=== PATIENT | male | born 1960 | race Caucasian/White ===

== ENCOUNTER 2016-11-01 16:15 | Observation (INO) | payer BC ==
[2016-11-01] VITALS (7 sets, daily range): BP systolic 133–156; BP diastolic 79–91
[~2016-11-01] VITALS: Ht 170.2 cm; Wt 94.2 kg
[~2016-11-01 16:15] MED LIST: ATOR10TA66 PO; MTF500T PO; OLME1TAB19 PO; OMEG1CAP PO
[2016-11-01] MEDS ORDERED: NEBI5TAB8 PO (16:55)
[2016-11-01] MEDS ORDERED: AMLO10TA2 PO (16:55)
[2016-11-01] MEDS ORDERED: TADA5TAB2 PO (16:55)
[2016-11-01] MEDS ORDERED: EMPA1TAB PO (16:55)
[2016-11-01] MEDS ORDERED: ATOR20TA66 PO (16:55)
[2016-11-01 17:10] LABS: BASOPHILS % (AUTO) 0 % (0-10); EOSINOPHILS # (AUTO) 0.1 10^3/uL (0.0-0.3); EOSINOPHILS % (AUTO) 1 % (0-10); LYMPHOCYTES # (AUTO) 2.6 X 10^3 (1.0-4.0); LYMPHOCYTES % (AUTO) 26 % (12-44); MEAN CORPUSCULAR HEMOGLOBIN 29 PG (25-34); MEAN CORPUSCULAR HGB CONC 34 G/DL (32-36); MEAN CORPUSCULAR VOLUME 87 FL (80-99); MONOCYTES # (AUTO) 0.9 X 10^3 (0.0-1.0); MONOCYTES % (AUTO) 9 % (0-12); NEUTROPHILS # (AUTO) 6.4 X 10^3 (1.8-7.8); NEUTROPHILS % (AUTO) 64 % (42-75); PLATELET COUNT 217 10^3/uL (130-400); RED BLOOD COUNT 5.32 10^6/uL (4.35-5.85); RED CELL DISTRIBUTION WIDTH 13.6 % (10.0-14.5)
[2016-11-01] MEDS ORDERED: ASPIRIN 81 MG CHEW (CHILDREN'S ASA) PO ONE (17:15)
--- NOTE | 2016-11-01 17:24 | Diagnostic Imaging Report ---
INDICATION: Chest pain and lightheadedness. EXAM: Frontal chest obtained at 5:14 hours p.m. COMPARISON: 03/03/2009 FINDINGS: The heart is borderline in size. Mediastinal silhouette is unremarkable. The lungs are clear. There is no pneumothorax or pleural fluid. IMPRESSION: Borderline heart size with no acute change compared to the prior study of 03/03/09. No new infiltrate or pleural fluid. Dictated by: Dictated on workstation # [id number]
[2016-11-01 17:25] LABS: ALANINE AMINOTRANSFERASE 23 U/L (0-55); ALBUMIN 4.3 GM/DL (3.2-4.5); ANION GAP 14 MMOL/L (5-14); ASPARTATE AMINO TRANSFERASE 17 U/L (5-34); BILIRUBIN,TOTAL 0.6 MG/DL (0.1-1.0); BLOOD UREA NITROGEN 15 MG/DL (7-18); BUN/CREATININE RATIO 12; CALCIUM 9.8 MG/DL (8.5-10.1); CARBON DIOXIDE 21 MMOL/L (21-32); CHLORIDE 106 MMOL/L (98-107); CREATININE SERUM 1.28 MG/DL (0.60-1.30); GFR ESTIMATED 58; GLUCOSE 154 MG/DL (70-105); MAGNESIUM 2.2 MG/DL (1.8-2.4); POTASSIUM 3.5 MMOL/L (3.6-5.0); SODIUM 141 MMOL/L (135-145); TOTAL PROTEIN 7.5 GM/DL (6.4-8.2)
[2016-11-01 17:31] LABS: MYOGLOBIN SERUM 30.9 NG/ML (10.0-92.0)
--- NOTE | 2016-11-01 17:41 | ED Chest Pain ---
General Chief Complaint: Chest Pain Stated Complaint: CP/DIZZINESS Nursing Triage Note: pt reports cp for aprox 2 hrs. pt states he also feels lightheaded. pt reports pain is worse with increased pain on inspiration. pt states pain is medial and by his sternum. Nursing Sepsis Screen: No Definite Risk Source: patient Exam Limitations: no limitations History of Present Illness Time seen by provider: 17:03 Initial Comments Here with and reports that he had chest pain onset about 2 hours prior to arrival. States that it was central with some radiation to the lateral aspect of the upper chest. He was trying to rest and was not getting better. He decided to walk into the kitchen when he became quite dizzy and weak and felt hot. States that symptoms worsened and so he decided to come to the hospital. On arrival he is feeling a little better with only minimal central chest pain or pressure. Patient is diabetic and has cholesterol and hypertension problems. He does not smoke but does have strong family history. Symptoms essentially resolved now. Patient does report taking Cialis last night. No report of Cialis since. Timing/Duration: 1-3 hours, changing over time Severity/Quality: moderate, pressure Location: central Radiation: shoulders Activities at Onset: none Prior CP/Workup: no prior chest pain Modifying Factors: worse with exercise, improves with rest ASA po CREDIT CHARGE AUTHORIZER: No NTG SL CREDIT CHARGE AUTHORIZER: No Associated Symptoms: No abdominal pain, No back pain, No diaphoresis, dizziness , No nausea/vomiting, shortness of breath, weakness Allergies and Home Medications Allergies Coded Allergies: No Known Drug Allergies (Unverified , 11/13/12) Home Medications Amlodipine Besylate 10 Mg Tablet, #90 (Reported) Atorvastatin Calcium 10 Mg Tablet, 10 MG PO DAILY, (Reported) Atorvastatin Calcium 20 Mg Tablet, #90 (Reported) Empagliflozin/Linagliptin 1 Each Tablet, #30 (Reported) Metformin Hcl 500 Mg Tablet, 1 EACH PO BID WITH MEALS, (Reported) Nebivolol HCl 5 Mg Tablet, 5 MG PO DAILY, #30 (Reported) Olmesartan 1 Tab Tablet, 1 EACH PO DAILY, (Reported) [place]-3 Acid Ethyl Esters 1 Gm Capsule, 1 GM PO DAILY, (Reported) Tadalafil 5 Mg Tablet, #30 (Reported) Review of Systems Constitutional: see HPI, No chills, No fever EENTM: No Symptoms Reported Respiratory: See HPI Cardiovascular: See HPI, Chest Pain Gastrointestinal: No Symptoms Reported Genitourinary: No Symptoms Reported Musculoskeletal: no symptoms reported Skin: no symptoms reported All Other Systems Reviewed Negative Unless Noted: Yes Past Iexresx-Dktots-Cgviqt Hx Patient Social History Alcohol Use: Rarely Uses Recreational Drug Use: No Smoking Status: Never a Smoker Recent Foreign Travel: No Contact w/Someone Who Travel: No Recent Infectious Disease Expo: No Respiratory Hx Respiratory Disorders: Yes (SLEEP ANEA) Respiratory Disorders: Sleep Apnea Cardiovascular Hx Cardiac Disorders: No Cardiac Disorders: High Cholesterol, Hypertension Gastrointestinal Hx Gastrointestinal Disorders: No Musculoskeletal Hx Musculoskeletal Disorders: Yes (ARTHRITIS) Endocrine Hx Endocrine Disorders: Yes Endocrine Disorders: Diabetes, Non-Insulin dep Blood Transfusions Adverse Reaction to a Blood Tr: No Reviewed Nursing Assessment Reviewed/Agree w Nursing PMH: Yes Family Medical History Significant Family History: No Pertinent Family Hx Physical Exam Vital Signs Vital Sign - Last 12Hours 11/01/16 16:37 Temp 98.2 Pulse 65 Resp 18 B/P (MAP) 133/79 Pulse Ox 97 O2 Delivery Room Air Capillary Refill : Less Than 3 Seconds General Appearance: No Apparent Distress, WD/WN HEENT: PERRL/EOMI, Pharynx Normal Neck: Non Tender, Supple Respiratory: Lungs Clear, Normal Breath Sounds Cardiovascular: Regular Rate, Rhythm, No Murmur Gastrointestinal: Normal Bowel Sounds, No Pulsatile Mass, Non Tender, Soft Extremity: Normal Inspection, Normal Range of Motion, Non Tender, No Calf Tenderness Neurologic/Psychiatric: Alert, Oriented x3 Skin: Normal Color, Warm/Dry Progress/Results/Core Measures Results/Orders Lab Results Laboratory Tests Test 11/01/16 16:30 Range/Units White Blood Count 10.0 4.3-11.0 10^3/uL Red Blood Count 5.32 4.35-5.85 10^6/uL Hemoglobin 15.5 13.3-17.7 G/DL Hematocrit 46 40-54 % Mean Corpuscular Volume 87 80-99 FL Mean Corpuscular Hemoglobin 29 25-34 PG Mean Corpuscular Hemoglobin Concent 34 32-36 G/DL Red Cell Distribution Width 13.6 10.0-14.5 % Platelet Count 217 130-400 10^3/uL Mean Platelet Volume 10.0 7.4-10.4 FL Neutrophils (%) (Auto) 64 42-75 % Lymphocytes (%) (Auto) 26 12-44 % Monocytes (%) (Auto) 9 0-12 % Eosinophils (%) (Auto) 1 0-10 % Basophils (%) (Auto) 0 0-10 % Neutrophils # (Auto) 6.4 1.8-7.8 X 10^3 Lymphocytes # (Auto) 2.6 1.0-4.0 X 10^3 Monocytes # (Auto) 0.9 0.0-1.0 X 10^3 Eosinophils # (Auto) 0.1 0.0-0.3 10^3/uL Basophils # (Auto) 0.0 0.0-0.1 10^3/uL Prothrombin Time 13.0 12.2-14.7 SEC INR Comment 1.0 0.8-1.4 Activated Partial Thromboplast Time 22 L 24-35 SEC D-Dimer 0.30 0.00-0.49 UG/ML Sodium Level 141 135-145 MMOL/L Potassium Level 3.5 L 3.6-5.0 MMOL/L Chloride Level 106 98-107 MMOL/L Carbon Dioxide Level 21 21-32 MMOL/L Anion Gap 14 5-14 MMOL/L Blood Urea Nitrogen 15 7-18 MG/DL Creatinine 1.28 0.60-1.30 MG/DL Estimat Glomerular Filtration Rate 58 BUN/Creatinine Ratio 12 Glucose Level 154 H 70-105 MG/DL Calcium Level 9.8 8.5-10.1 MG/DL Magnesium Level 2.2 1.8-2.4 MG/DL Total Bilirubin 0.6 0.1-1.0 MG/DL Aspartate Amino Transf (AST/SGOT) 17 5-34 U/L Alanine Aminotransferase (ALT/SGPT) 23 0-55 U/L Alkaline Phosphatase 60 40-136 U/L Myoglobin 30.9 10.0-92.0 NG/ML Troponin I < 0.30 <0.30 NG/ML Total Protein 7.5 6.4-8.2 GM/DL Albumin 4.3 3.2-4.5 GM/DL Amylase Level 68 25-125 U/L Lipase 36 8-78 U/L My Orders Orders - ROMEO JUAN MD Cbc With Automated Diff (11/01/16 17:01) Magnesium (11/01/16 17:01) Chest 1 View, Ap/Pa Only (11/01/16 17:01) Ekg Tracing (11/01/16 17:01) Cardiac Profile 1 (11/01/16 17:01) Comprehensive Metabolic Panel (11/01/16 17:01) Myoglobin Serum (11/01/16 17:01) Protime With Inr (11/01/16 17:01) Partial Thromboplastin Time (11/01/16 17:01) O2 (11/01/16 17:01) Monitor-Rhythm Ecg Trace Only (11/01/16 17:01) Lipid Panel (11/02/16 06:00) Aspirin Chewable Tablet (Baby Aspirin Ch (11/01/16 17:15) Saline Lock/Iv-Start (11/01/16 17:01) Amylase (11/01/16 17:55) Fibrin Degradation Products (11/01/16 17:55) Lipase (11/01/16 17:55) Medications Given in ED Current Medications Medications Dose Ordered Sig/Eddie Route Start Time Stop Time Status Last Admin Dose Admin Aspirin 324 mg ONCE ONCE PO 11/01/16 17:15 11/01/16 17:16 DC 11/01/16 17:07 324 MG Vital Signs/I&O Vital Sign - Last 12Hours 11/01/16 11/01/16 16:37 16:37 Temp 98.2 Pulse 65 Resp 18 B/P (MAP) 133/79 Pulse Ox 97 O2 Delivery Room Air Blood Pressure Mean: 97 Progress Note : Progress Note Seen and evaluated. IV, labs, EKG and chest x-ray ordered. ASA 324 mg by mouth given. Nitroglycerin held as patient was essentially pain-free and he has recent Cialis use last . Monitor patient. 1840: I did discuss the case with Dr. PELAYO and he accepts patient for admission. Consulted Dr. Butts. He accepts patient as consult. Patient and family agree with plan. Patient remains pain free. ECG Initial ECG Impression Date: Nov 01, 2016 Initial ECG Impression Time: 16:24 Initial ECG Rate: 59 Initial ECG Rhythm: Normal Sinus Initial ECG Comparisson: No Previous ECG Available Comment Sinus rhythm with left atrial abdomen mildly. No evidence of ST elevation TX. T waves are flattened in the inferior leads. No previous available for comparison. Interpreted by me. Departure Communication Time/Spoke to Admitting Phy: 18:40 Time/Spoke to Consulting Physi: 18:45 Impression Impression: Primary Impression: Chest pain Qualified Codes: R07.9 - Chest pain, unspecified Disposition: 09 ADMITTED INPATIENT Condition: Stable Decision to Admit Reason: Admit from ER (General) Decision to Admit/Date: Nov 01, 2016 Time/Decision to Admit Time: 18:40 Departure-Patient Inst. Referrals: CHUCHO RAYA MD (PCP/Family) Primary Care Physician ROMEO JUAN MD Nov 01, 2016 17:41
[2016-11-01 18:12] LABS: AMYLASE 68 U/L (25-125); LIPASE 36 U/L (8-78)
[2016-11-01 23:16] LABS: CREATINE KINASE 83 U/L (30-200)
[2016-11-01 23:22] LABS: MYOGLOBIN SERUM 40.3 NG/ML (10.0-92.0); TROPONIN I < 0.30 NG/ML (<0.30)
[2016-11-01] MEDS ORDERED: NS IV 1000 ML 1,000 ML IV SCH (23:30)
[2016-11-01] MEDS ORDERED: morphine INJ 4 MG/ML 1 ML (VIAL/SYRINGE) IV PRN (23:30)
[2016-11-01] MEDS ORDERED: NITROGLYCERIN SUBLINGUAL 0.4 MG TAB (NITROSTAT) SL PRN (23:30)
[2016-11-02] VITALS (11 sets, daily range): BP systolic 122–161; BP diastolic 80–96
[2016-11-02] MEDS: inSUlin (REGULAR) HUMAN 1 UNIT/0.01 ML (CHARGE PER UNIT) SC SCH ×3 (05:28→17:21)
[2016-11-02] MEDS ORDERED: inSUlin (REGULAR) HUMAN 1 UNIT/0.01 ML (CHARGE PER UNIT) SC SCH (06:00)
[2016-11-02 06:07] LABS: BASOPHILS % (AUTO) 0 % (0-10); EOSINOPHILS # (AUTO) 0.1 10^3/uL (0.0-0.3); EOSINOPHILS % (AUTO) 2 % (0-10); LYMPHOCYTES # (AUTO) 2.1 X 10^3 (1.0-4.0); LYMPHOCYTES % (AUTO) 25 % (12-44); MEAN CORPUSCULAR HEMOGLOBIN 30 PG (25-34); MEAN CORPUSCULAR HGB CONC 34 G/DL (32-36); MEAN CORPUSCULAR VOLUME 88 FL (80-99); MONOCYTES # (AUTO) 0.9 X 10^3 (0.0-1.0); MONOCYTES % (AUTO) 11 % (0-12); NEUTROPHILS # (AUTO) 5.5 X 10^3 (1.8-7.8); NEUTROPHILS % (AUTO) 63 % (42-75); PLATELET COUNT 186 10^3/uL (130-400); RED BLOOD COUNT 5.14 10^6/uL (4.35-5.85); RED CELL DISTRIBUTION WIDTH 13.9 % (10.0-14.5); WHITE BLOOD COUNT 8.7 10^3/uL (4.3-11.0)
[2016-11-02 06:28] LABS: CHOLESTEROL 167 MG/DL (< 200); DIRECT LDL 101 MG/DL (1-129); TRIGLYCERIDES 203 MG/DL (<150); VLDL CHOLESTEROL 41 MG/DL (5-40)
[2016-11-02 06:30] LABS: ALANINE AMINOTRANSFERASE 20 U/L (0-55); ANION GAP 11 MMOL/L (5-14); ASPARTATE AMINO TRANSFERASE 17 U/L (5-34); BILIRUBIN,TOTAL 0.7 MG/DL (0.1-1.0); BLOOD UREA NITROGEN 14 MG/DL (7-18); BUN/CREATININE RATIO 11; CALCIUM 9.4 MG/DL (8.5-10.1); CARBON DIOXIDE 22 MMOL/L (21-32); CHLORIDE 108 MMOL/L (98-107); CREATININE SERUM 1.22 MG/DL (0.60-1.30); GFR ESTIMATED > 60; GLUCOSE 126 MG/DL (70-105); POTASSIUM 3.9 MMOL/L (3.6-5.0); SODIUM 141 MMOL/L (135-145); TOTAL PROTEIN 7.1 GM/DL (6.4-8.2)
[2016-11-02] MEDS ORDERED: ASPIRIN E.C. 325 MG (ECOTRIN) TABLET PO SCH (09:00)
[2016-11-02] MEDS ORDERED: HEParin (CATH LAB) 2,000 ML IV ONE (11:29)
[2016-11-02] MEDS ORDERED: NS IV 1000 ML 0 ML ONE (11:29)
--- NOTE | 2016-11-02 11:41 | Consultation-Cardiology ---
HPI-Cardiology Cardiology Consultation: Date of Consultation 11/02/16 Time Seen by Provider: 10:50 Date of Admission 11-01-16 Attending Physician Damir New MD Admitting Physician Yovani Echeverria MD Consulting Physician Nubia Aleman MD HPI: Chief Complaint: Chest pain Mr. Abdi is a 56 year old male who has been admitted to 413 from the ED. He reports he had been at [facility] on Tuesday and done a considerable amount of walking. He states on Tuesday evening he had quite a bit of indigestion and belching. He states he sat up on the side of the bed, but this passed and he was able to go back to sleep. He reports yesterday he began having midsternal chest pressure, like someone was pushing on his chest. He states he was watching television when it came on. The discomfort continued to worsen. He states he felt very nauseated. He reports he got up and he felt like he may pass out. His spouse at the bedside states he became very pale and sweaty. It lasted for quite a few minutes and resolved. However, he was still having the chest pressure. He then came to the ED. He reports the discomfort has subsided almost entirely. He rates it a 1 out of 10 on the pain scale. He states he does feel much better this morning. No c/o dyspnea or syncope. No c/ o vomiting or diarrhea. No c/o LE edema. Review of Systems-Cardiology Review of Systems Constitutional: As described under HPI, No As described under HPI, No no symptoms reported, No chills, No fever, No lightheadedness Eyes: No As described under HPI, No no symptoms reported, No blindness, No blurred vision, No contact lenses, No drainage, No decreased acuity, No foreign body sensation, No pain, No vision change Ears/Nose/Throat: No As described under HPI, No no symptoms reported, No chronic hearing loss, No ear discharge, No ear pain, No nasal drainage, No ulcerations Respiratory: No no symptoms reported, As described under HPI, No As described under HPI, No cough, No orthopnea, No shortness of breath, No SOB with excertion Cardiovascular: No no symptoms reported, As described under HPI, No As described under HPI, No chest pain, No edema, No irregular heart rate, No lightheadedness, No palpitations Gastrointestinal: No no symptoms reported, No As described under HPI, No abdomen distended, No abdominal pain, No blood streaked bowels, No constipation , No diarrhea, No nausea, No vomiting, No stool coloration changes Genitourinary: No As described under HPI, No burning, No dysuria, No discharge , No frequency, No flank pain, No hematuria, No urgency Skin: No rash, No skin related problems, No ulcerations Psychiatric/Neurological: No anxiety, No depression, No focal weakness, No seizure, No syncope Hematologic: No bleeding abnormalities All Other Systems Reviewed Negative Unless Noted: Yes EGE-Zrniaz-Obgfrk Hx Patient Social History Alcohol Use: Rarely Uses Recreational Drug Use: No Smoking Status: Never a Smoker Recent Foreign Travel: No Recent Infectious Disease Expo: No Past Medical History PMH As described under Assessment. Family Medical History Family Medical History: He reports his father had CAD and was in his late 40's when he had his first heart attack. He reports his mother had CHF. He reports a brother who is 13 year older than him has CAD with stents placed a year ago. Family History: 19 FATHER Cardiovascular disease FH: congestive heart failure FH: coronary artery bypass surgery 19 MOTHER FH: congestive heart failure Diabetes mellitus G8 BROTHER Stent Allergies and Home Medications Allergies Coded Allergies: No Known Drug Allergies (Unverified , 11/13/12) Home Medications Amlodipine Besylate 10 Mg Tablet, 10 MG PO DAILY, (Reported) Atorvastatin Calcium 20 Mg Tablet, 20 MG PO DAILY, (Reported) Empagliflozin/Linagliptin 1 Each Tablet, 1 TAB PO DAILY, (Reported) Nebivolol HCl 5 Mg Tablet, 5 MG PO DAILY, (Reported) Tadalafil 5 Mg Tablet, 5 MG PO DAILY PRN for SEXUAL ACTIVITY, (Reported) Physical Exam-Cardiology Physical Exam Vital Signs/I&O Vital Sign - Last 12Hours 11/02/16 11/02/16 11/02/16 11/02/16 04:00 07:24 08:52 13:00 Temp 98.2 98.0 98.4 Pulse 59 66 63 57 Resp 20 20 20 B/P (MAP) 129/82 136/88 161/85 Pulse Ox 97 98 97 O2 Delivery Room Air Room Air Room Air Intake and Output 11/02/16 00:00 Intake Total 240 ml Balance 240 ml Capillary Refill : Less Than 3 Seconds Constitutional: appears stated age, No apparent distress, well-developed, well- nourished HEENT: PERRL, No discharge, hearing is well preserved, oral hygience is good, No ulceration, No xanthelasmas are seen Neck: No carotid bruit, carotid pulses are 2 + bilaterally Respiratory: No accessory muscle use, No respiratory distress, lungs clear to percussion, lungs clear to auscultation Cardiovascular: regular rate-rhythm, No JVD, S1 and S2 Gastrointestinal: No tender, soft, round, No spleenomegaly Rectal: deferred Extremities: No clubbing, No cyanosis, No significant edema Neurologic/Psychiatric: alert, oriented x 3, power is 5/5 both on sides Skin: No rash, No ulcerations Data Review Labs Laboratory Tests 11/01/16 16:30: White Blood Count 10.0, Red Blood Count 5.32, Hemoglobin 15.5, Hematocrit 46, Mean Corpuscular Volume 87, Mean Corpuscular Hemoglobin 29, Mean Corpuscular Hemoglobin Concent 34, Red Cell Distribution Width 13.6, Platelet Count 217, Mean Platelet Volume 10.0, Neutrophils (%) (Auto) 64, Lymphocytes (%) (Auto) 26 , Monocytes (%) (Auto) 9, Eosinophils (%) (Auto) 1, Basophils (%) (Auto) 0, Neutrophils # (Auto) 6.4, Lymphocytes # (Auto) 2.6, Monocytes # (Auto) 0.9, Eosinophils # (Auto) 0.1, Basophils # (Auto) 0.0, Prothrombin Time 13.0, INR Comment 1.0, Activated Partial Thromboplast Time 22L, D-Dimer 0.30, Sodium Level 141, Potassium Level 3.5L, Chloride Level 106, Carbon Dioxide Level 21, Anion Gap 14, Blood Urea Nitrogen 15, Creatinine 1.28, Estimat Glomerular Filtration Rate 58, BUN/Creatinine Ratio 12, Glucose Level 154H, Calcium Level 9.8, Magnesium Level 2.2, Total Bilirubin 0.6, Aspartate Amino Transf (AST/SGOT ) 17, Alanine Aminotransferase (ALT/SGPT) 23, Alkaline Phosphatase 60, Myoglobin 30.9, Troponin I < 0.30, Total Protein 7.5, Albumin 4.3, Amylase Level 68, Lipase 36 11/01/16 22:50: Myoglobin 40.3, Troponin I < 0.30, Total Creatine Kinase 83 11/02/16 05:14: Glucometer 127H 11/02/16 05:30: Triglycerides Level 203H, Cholesterol Level 167, LDL Cholesterol Direct 101, VLDL Cholesterol 41H, HDL Cholesterol 35L 11/02/16 05:40: White Blood Count 8.7, Red Blood Count 5.14, Hemoglobin 15.3, Hematocrit 45, Mean Corpuscular Volume 88, Mean Corpuscular Hemoglobin 30, Mean Corpuscular Hemoglobin Concent 34, Red Cell Distribution Width 13.9, Platelet Count 186, Mean Platelet Volume 10.0, Neutrophils (%) (Auto) 63, Lymphocytes (%) (Auto) 25 , Monocytes (%) (Auto) 11, Eosinophils (%) (Auto) 2, Basophils (%) (Auto) 0, Neutrophils # (Auto) 5.5, Lymphocytes # (Auto) 2.1, Monocytes # (Auto) 0.9, Eosinophils # (Auto) 0.1, Basophils # (Auto) 0.0, Sodium Level 141, Potassium Level 3.9, Chloride Level 108H, Carbon Dioxide Level 22, Anion Gap 11, Blood Urea Nitrogen 14, Creatinine 1.22, Estimat Glomerular Filtration Rate > 60, BUN/ Creatinine Ratio 11, Glucose Level 126H, Calcium Level 9.4, Total Bilirubin 0.7 , Aspartate Amino Transf (AST/SGOT) 17, Alanine Aminotransferase (ALT/SGPT) 20, Alkaline Phosphatase 56, Total Protein 7.1, Albumin 4.0 11/02/16 10:31: Glucometer 130H Radiology NAME: BETZY ABDI [facility] REC#: [id number] PT STATUS: REG ER : 1960 PHYSICIAN: ROMEO JUAN MD ADMIT DATE: 11/01/16/ER Signed Date of Exam: 11/01/16 CHEST 1 VIEW, AP/PA ONLY INDICATION: Chest pain and lightheadedness. EXAM: Frontal chest obtained at 5:14 hours p.m. COMPARISON: 03/03/2009 FINDINGS: The heart is borderline in size. Mediastinal silhouette is unremarkable. The lungs are clear. There is no pneumothorax or pleural fluid. IMPRESSION: Borderline heart size with no acute change compared to the prior study of 03/03/09. No new infiltrate or pleural fluid. Dictated by: Dictated on workstation # [id number] Dict: 11/01/16 1720 Trans: 11/01/16 180 Interpreted by: MARCIN DUBOIS MD Electronically signed by: MARCIN DUBOIS MD 11/01/161800 ECG Impression ECG Initial ECG Rhythm: Normal Sinus A/P-Cardiology Assessment/Admission Diagnosis Chest discomfort of undetermined etiology, unstable angina suspected HTN DM HLD - statin followed by his PCP Elevated BMI of 32.5 Family h/o CAD (father first AK in his 40') GERD Discussion and Recomendations Chest discomfort of undetermined etiology. Based on his c/o, risk factors and h /o we advise further cardiac work up. We have discussed both invasive and non- invasive options. We have advised cardiac cath. However, he and his spouse are not agreeable as of yet. They would like to further discuss with each other and Dr. Aleman. We will continue home medications. We will continue to leave him NPO for now until they have reached a decision. We would like to thank the Hospitalist service for this consult. Further recommendations will be based on his hospital course. This consult is being scribed by Ciera Maradiaga APRN on behalf of Dr. Aleman after discussion regarding plan of care. Clinical Quality Measures AMI/AHF: ASA po Prior to arrival: No DVT/VTE Risk/Contraindication: Risk Factor Score Per Nursin RFS Level Per Nursing on Admit: 1=Low/No VTE PPX Physician Assessment Physician Assessment Lungs: clear Cor: reg Ext: no c/c/e A&R * As documented in our note above that I updated (italics) and as noted below * He has multiple risk factors and has symptoms that are consistent with unstable angina * Card cath appears appropriate * I spoke with him in detail regarding rationale, procedure, risks, benefits, potential complications, and alternatives of card cath and possible ad hoc cor intervention; he understands and provides informed consent NATALIO MARADIAGA Nov 02, 2016 11:41 NUBIA ALEMAN MD [facility] Nov 02, 2016 15:02
--- NOTE | 2016-11-02 13:17 | History & Physical-Hospitalist ---
HPI History of Present Illness: HPI/Chief Complaint The patient is a 56-year-old white male who presented to the emergency room last evening with complaints of chest pressure. He reported that this came on after 1530 yesterday afternoon. He was sitting quietly when that the pressure began. He then attempted to get up out of the chair and walk and became very lightheaded and diaphoretic. He sat back down in this ultimately passed. The sensation of pressure did not. He also has had some problems with heartburn and dysphagia. His family history is positive for heart disease with his father having his first problems in his 40s. His mother ultimately had intervention in her 60s. His older brother also had problems with intervention and his mid to late 50s. Risk factors are male sex, age, hypertension, diabetes, and family history. He is not a smoker. Source: patient, family Exam Limitations: no limitations Date Seen 11/02/16 Time Seen by Provider: 13:11 Attending Physician Damir Pelayo MD PCP Yovani Echeverria MD Referring Physician Date of Admission Nov 01, 2016 at 18:20 Home Medications & Allergies Home Medications Reviewed patient Home Medication Reconciliation Form Allergies Allergies Coded Allergies No Known Drug Allergies (Unverified11/13/12) Past Icqeove-Arylou-Prqpgh Hx Patient Social History Alcohol Use: Rarely Uses Recreational Drug Use: No Smoking Status: Never a Smoker Recent Foreign Travel: No Contact w/other who traveled: No Recent Hopitalizations: No Recent Infectious Disease Expo: No Seasonal Allergies Seasonal Allergies: No Respiratory Hx Respiratory Disorders: Yes (SLEEP ANEA) Cardiovascular Hx Cardiovascular Disorders: No Cardiac Disorders: High Cholesterol, Hypertension Gastrointestinal Hx Gastrointestinal Disorders: No Musculoskeletal Hx Musculoskeletal Disorders: Yes (ARTHRITIS) Endocrine Hx Endocrine Disorders: Yes Endocrine Disorders: Diabetes, Non-Insulin dep Blood Transfusions Adverse Reaction to a Blood Tr: No Reviewed Nursing Assessment Reviewed/Agree w Nursing PMH: Yes Family Medical History Significant Family History: No Pertinent Family Hx Family Hx: Cardiovascular disease 19 FATHER Diabetes mellitus 19 MOTHER FH: congestive heart failure 19 FATHER 19 MOTHER FH: coronary artery bypass surgery 19 FATHER Stent G8 BROTHER Review of Systems Constitutional: see HPI EENTM: no symptoms reported Respiratory: no symptoms reported Cardiovascular: see HPI, chest pain, syncope Gastrointestinal: heartburn Genitourinary: no symptoms reported Musculoskeletal: no symptoms reported Skin: no symptoms reported Psychiatric/Neurological: No Symptoms Reported Physical Exam Physical Exam Vital Signs Vital Sign - Last 12Hours 11/01/16 16:37 Temp 98.2 Pulse 65 Resp 18 B/P (MAP) 133/79 Pulse Ox 97 O2 Delivery Room Air Capillary Refill : Less Than 3 Seconds General Appearance: No Apparent Distress, WD/WN HEENT: Normal ENT Inspection Neck: Normal Inspection Respiratory: Chest Non Tender, Lungs Clear, Normal Breath Sounds, No Accessory Muscle Use, No Respiratory Distress Cardiovascular: Regular Rate, Rhythm, No Edema, No Gallop, No JVD, No Murmur, Normal Peripheral Pulses Gastrointestinal: Normal Bowel Sounds, No Organomegaly, No Pulsatile Mass, Non Tender, Soft Back: Normal Inspection, No CVA Tenderness, No Vertebral Tenderness Extremity: Other (scars bilateral Achilles from what I 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 Multiple risk factors including hypertension, genetics, and diabetes Clinical Quality Measures AMI/AHF: ASA po Prior to arrival: No DVT/VTE Risk/Contraindication: Risk Factor Score Per Nursin RFS Level Per Nursing on Admit: 1=Low/No VTE PPX DAMIR PELAYO MD Nov 02, 2016 13:17
[2016-11-02] MEDS ORDERED: fentaNYL INJECTION 100 MCG/2 ML AMP ONE (14:05)
[2016-11-02] MEDS ORDERED: MIDAZOLAM 5 MG/5 ML (VERSED) VIAL ONE (14:05)
[2016-11-02] MEDS ORDERED: diphenhydrAMINE 50 MG/ML INJ (BENADRYL) ONE (14:05)
[2016-11-02] MEDS ORDERED: ADENOSINE 3 MG/1 ML (ADENOSCAN) 30ML VIAL IV ONE (15:06)
[2016-11-02] MEDS ORDERED: HEParin 1000 UNIT/ML (10ML VIAL) FOR BOLUS ONE (15:07)
[2016-11-02] MEDS ORDERED: NS IV 1000 ML 1,000 ML IV SCH (15:50)
[2016-11-02] MEDS ORDERED: ASPI-999 PO (15:53)
[2016-11-02] MEDS ORDERED: ATOR80TA76 PO (15:54)
--- NOTE | 2016-11-02 15:56 | Discharge Inst-Cardiology ---
Discharge Inst-Cardiac Discharge Medications New Medications: Aspirin (Aspirin) 81 Mg Tab.chew 81 MG PO DAILY, #90 TAB 3 Refills Atorvastatin Calcium (Atorvastatin Calcium) 80 Mg Tablet 80 MG PO DAILY, #90 TAB Continued Medications: Amlodipine Besylate (Amlodipine Besylate) 10 Mg Tablet 10 MG PO DAILY Empagliflozin/Linagliptin (Glyxambi 25 mg-5 mg Tablet) 1 Each Tablet 1 TAB PO DAILY Nebivolol HCl (Bystolic) 5 Mg Tablet 5 MG PO DAILY Tadalafil (Cialis) 5 Mg Tablet 5 MG PO DAILY PRN for SEXUAL ACTIVITY Discontinued Medications: Atorvastatin Calcium (Atorvastatin Calcium) 20 Mg Tablet 20 MG PO DAILY Activity & Diet Discharge Diet: ADA Diet (1800 kCal) Orders-Post D/C & Referrals Pneu Vac Indicated: Yes SIDNEY NEVILLE MD FACP [facility] CCDS Nov 02, 2016 15:56
--- NOTE | 2016-11-02 15:57 | Discharge Inst-Post CATH ---
Discharge Inst-CATH Post Cardiac Cath D/C Inst Follow Up/Plan F/u with Dr Aleman tomorrow CARDIAC CATH DISCHARGE INSTRUCTIONS *Hold Metformin for 48 hours post heart cath. ACTIVITY * Go Home directly and rest. * Limit activity of the leg (or wrist if it was used) for 7 days including aerobics, swimming, jogging, bicycling, etc. * Restrict stair-climbing for 7 days if possible, if not, climb up with your non -cath leg, then bring together on the same step. * Avoid lifting, pushing, pulling or excessive movement of the affected extremity for 7 days. * Customary sexual activity may be resumed after 2 days-use caution not to use a position that strains or causes pain to the affected extremity. * No driving for 24 hours. * NO SMOKING. * Avoid straining for bowel movements for 7 days. * Gentle walking on level ground is allowed. * Returning to work will depend on the type of procedure and the results. Your doctor will discuss this with you. CALL YOUR DOCTOR FOR ANY OF THE FOLLOWING: *If bleeding from the puncture site occurs- Apply gentle pressure to site with clean cloth and call your doctor or EMS. * If a knot or lump forms under the skin, increases in size, or causes pain. * If bruising appears to be worsening or moving further down your leg instead of disappearing. * Temperature above 101 F. CARE OF YOUR GROIN INCISION; * Bruising or purple discoloration of the skin near the puncture site is common. * You may shower only, no bathtub bathing for 5 days. Be careful to avoid slipping as your leg may feel stiff. * If a closure device was used on your femoral artery, please see the attached guide regarding care of the device and your leg. * REMOVE the dressing from your groin the next day after your procedure in the shower. CARE OF YOUR WRIST INCISION; * Bruising or purple discoloration of the skin near the puncture site is common. * You may shower. * DO NOT submerge wrist. * Remove dressing in 24 hours. SIDNEY ALEMAN MD [facility] CCDS Nov 02, 2016 15:57
[2016-11-02] MEDS ORDERED: PATIENT MAY USE OWN MEDS, ALL PO SCH (16:00)
--- NOTE | 2016-11-02 16:01 | Cardiology Discharge Summary ---
Diagnosis/Chief Complaint Date of Admission Nov 01, 2016 at 18:20 Date of Discharge 11/02/16 Admission Diagnosis Chest discomfort of undetermined etiology, unstable angina suspected HTN DM HLD - statin followed by his PCP Elevated BMI of 32.5 Family h/o CAD (father first ND in his 40') GERD Final/Discharge Diagnosis Chest discomfort of undetermined etiology Cardiac cath of 11/02/16 shows moderate, diffuse CAD; LVEF 69%; normal LVEDP Recent near-syncope HTN DM II HLD Elevated BMI of 32.5 Family h/o CAD (father first ND in his 40') GERD Chief Complaint/HPI Chief Complaint/HPI Mr. Abdi is a 56 year old male who has been admitted to [facility] from the ED. He reports he had been at [facility] on Tuesday and done a considerable amount of walking. He states on Tuesday evening he had quite a bit of indigestion and belching. He states he sat up on the side of the bed, but this passed and he was able to go back to sleep. He reports yesterday he began having midsternal chest pressure, like someone was pushing on his chest. He states he was watching television when it came on. The discomfort continued to worsen. He states he felt very nauseated. He reports he got up and he felt like he may pass out. His spouse at the bedside states he became very pale and sweaty. It lasted for quite a few minutes and resolved. However, he was still having the chest pressure. He then came to the ED. He reports the discomfort has subsided almost entirely. He rates it a 1 out of 10 on the pain scale. He states he does feel much better this morning. No c/o dyspnea or syncope. No c/ o vomiting or diarrhea. No c/o LE edema. Stable post-cath. Wishes to go home. 2-week amb card monitoring is recommend to eval near-syncope. He states he will have that done as an outpatient. Risk modification reviewed Discharge Summary Procedures Card cath and echo on 11/02/16. Hospital Course Pending Labs Laboratory Tests 11/02/16 10:31: Glucometer 130 Discussion & Recommendations Home Medications Reviewed patient Home Medication Reconciliation Form Discharge Home Medications: Reviewed and agree with Discharge Medication list on patient's Discharge Instruction sheet Instructions to patient/family F/u with Dr Aleman tomorrow Clinical Quality Measures AMI/AHF: ASA po Prior to arrival: No DVT/VTE Risk/Contraindication: Risk Factor Score Per Nursin RFS Level Per Nursing on Admit: 1=Low/No VTE PPX ISDNEY ALEMAN MD FACP FAC CCDS Nov 02, 2016 16:01
--- NOTE | 2016-11-03 10:51 | CARDIAC CATHETERIZATION ---
PROCEDURE PHYSICIAN: SIDNEY NEVILLE DATE OF PROCEDURE: 11/02/2016 Fly Abdi is a 56-year-old man who has multiple coronary artery disease risk factors who presents with the symptoms that are suggestive of new onset of angina pectoris. Cardiac catheterization was carried out today after having obtained an informed consent. PROCEDURE: He was brought to the cardiac catheterization laboratory in a fasting state. The right groin was prepared and draped in usual sterile fashion. 1% lidocaine was used for local anesthesia. Modified Seldinger technique was used to advance a 5 [place] sheath in right femoral artery. Angiography of the right femoral artery was carried out through the sheath. 5-[place] JL4 catheter was used for left coronary angiography. A 5-[place] JR4 catheter was used for right coronary angiography. A 5-[place] pigtail catheter was used for left ventricular angiography. FRACTION FLOW RESERVE MEASUREMENT IN A RAMUS INTERMEDIUS: Following completion of the diagnostic procedure, we carried out fractional flow reserve measurement in the ramus intermedius artery, which was exhibiting 50% angiographic stenosis. We exchanged the sheath over a wire for a 6-[place] sheath. We gave 6000 units of intravenous heparin. We used a 6-[place] JL4 guide catheter to engage the left coronary artery. We advanced an Aeris wire across the lesion in the ramus intermedius and the tip was placed in the distal vessel. Adenosine was infused at 140 mcg/kg per minute for 2 minutes. Fractional flow reserve was 0.96, indicating hemodynamic nonsignificance. HEMODYNAMICS: Left ventricular end diastolic pressure following coronary angiography was 6 mmHg. There was no significant pressure gradient on pullback across the aortic valve. Ascending aortic pressure was 131/80 with a mean of 102 mmHg. LEFT VENTRICULAR ANGIOGRAPHY: Left ventricular angiography was carried out in the right anterior oblique projection. Global left ventricular systolic function is normal. No regional wall motion abnormalities are seen. Left ventricular ejection fraction is approximately 60%. There is no significant mitral regurgitation. CORONARY ANGIOGRAPHY: There is diffuse coronary calcification. The left main coronary artery does not exhibit significant obstructive disease. Left anterior descending artery has diffuse, moderate disease. There is stenosis up to 30%. The proximal left anterior descending artery has 30 to 40% stenosis. A ramus intermedius artery has 50% proximal stenosis and fractional flow reserve across this stenosis is 0.96, indicating hemodynamic nonsignificance. The left circumflex artery is small and nondominant. 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 There is diffuse moderate disease of the right coronary artery. There are multiple stenoses of 30 to 40%. Right coronary artery is dominant. CONCLUSIONS: 1. Coronary artery disease, moderate, without evidence of obstructive disease. 2. Normal global left ventricular systolic function with an ejection fraction of 60%. 3. Normal left ventricular end diastolic pressure. 4. No significant mitral regurgitation. DISCUSSION AND RECOMMENDATIONS: Risk factor modification is reviewed with him. Treatment is advised with statins, antiplatelet agents, and beta blockers. Outpatient follow-up is advised. Job ID: [id number] Dictated Date: 11/02/2016 15:39:07 Carpenter Assembler Date: 11/03/2016 10:40:09 / jose
[2016-11-05 06:44] LABS: CK BB REF 0 % (0-0); CK MB REF 0 % (0-4); CK MM REF 100 % (96-100)
[2016-11-05 06:45] LABS: CK TOTAL REF 79 U/L (20-200)
== END 2016-11-02 17:05 | disposition home or self-care (01) ==
LOC: EDUNIT# 16:15 → ER 16:17 → UNDOADMOB 18:20 → 4TH 18:20 → ICU 11-02 15:50 → 4TH 11-02 15:50 → ENPENDDIS 11-02 20:00 → UNDODISOB 11-02 21:07
PROVIDERS: ADMIT Internal Medicine; ATTEND Internal Medicine
DX: R07.89 Other chest pain (principal); I25.10 Atherosclerotic heart disease of native coronary artery without angina pectoris; I25.84 Coronary atherosclerosis due to calcified coronary lesion; I10 Essential (primary) hypertension; E78.5 Hyperlipidemia, unspecified; E11.9 Type 2 diabetes mellitus without complications; K21.9 Gastro-esophageal reflux disease without esophagitis; R55 Syncope and collapse; Z79.899 Other long term (current) drug therapy; Z82.49 Family history of ischemic heart disease and other diseases of the circulatory system
CPT/HCPCS: 36415; 71010; 80053; 80061; 82150; 82550; 82552; 82962; 83690; 83735; 83874; 84484; 85025; 85379; 85610; 85730; 93005; 93041; 93306; 93458; 93571

== ENCOUNTER → 2020-03-13 | Outpatient (CLI) | payer BC ==
[~2020-03-13] MED LIST changes: +AMLO-251 PO; +ASPI-999 PO; +ATOR20TA66 PO; +ATOR80TA76 PO; +EMPA1TAB PO; +NEBI5TAB8 PO; +TADA5TAB2 PO
--- NOTE | 2020-03-13 18:05 | Diagnostic Imaging Report ---
INDICATION: Neck pain. TECHNIQUE: AP and odontoid and lateral views of the cervical spine are obtained. FINDINGS: Cervical vertebrae are normal in height. There is mild osteophyte formation at C2-C3 and C3-C4 anteriorly. There is slight anterolisthesis of C4 on C5 by about 2 mm. There is mild osteophyte formation at C5-C6. Facets are in good alignment. Odontoid is intact. IMPRESSION: Mild degenerative findings in the cervical spine as described above with no definite acute process. Dictated by: Dictated on workstation # [id number]
== END ==
LOC: RAD 14:26
DX: M47.812 Spondylosis without myelopathy or radiculopathy, cervical region (principal)
CPT/HCPCS: 72040

== ENCOUNTER → 2020-04-01 | Outpatient (CLI) | payer BC ==
--- NOTE | 2020-04-01 18:14 | Diagnostic Imaging Report ---
CLINICAL INDICATION: Patient with neck popping and pain x3 months. EXAM: MRI of the cervical spine performed without IV contrast. Sequences include sagittal T1, sagittal T2, sagittal stir, axial gradient echo sequence, and axial T2. COMPARISON: X-ray of the cervical spine dated 03/13/2020. FINDINGS: There is no acute cervical spine fracture. Limited visualization of posterior fossa and cervical spinal cord shows no significant abnormality. There is a roughly 1.4 cm heterogeneous high T2 signal nodule in the left thyroid gland. There are degenerative spurs involving the cervical spine. There is stable straightening of the cervical spine posture. C1-C2: There are degenerative spurs involving the atlantoodontoid interval anteriorly. There is no significant central canal narrowing. C2-C3: There is mild left facet arthropathy. There is no significant central spinal canal or neural foramen narrowing. C3-C4: There is mild bilateral facet arthropathy. There is mild bilateral neural foramen narrowing. C4-C5: There is again seen grade 1 anterolisthesis of C4 on C5. There is moderate bilateral facet arthropathy. There is mild left neural foramen narrowing and hfsr-ux-mfwzbtwn right neural foramen narrowing. There is no significant central canal narrowing. There is a subtle posterior disc bulge. C5-C6: There is no significant central spinal canal or neural foramen narrowing. C6-C7: There is a small posterior disc bulge. There is mild bilateral facet arthropathy. There is lqsq-jc-sgabgykc right neural foramen narrowing. There is no significant left neural foramen narrowing. There is no significant central canal narrowing. C7-T1: There is grade 1 anterolisthesis of C7 on T1. There is a diffuse disc bulge with superimposed nwggn-lz-plpswcsp size central disc extrusion/herniation with roughly 6 mm of cephalad disc migration. There is localized moderate central canal stenosis. There is severe left facet arthropathy/hypertrophy and mild right facet arthropathy. There is severe left neural foramen narrowing and no significant right neural foramen narrowing. IMPRESSION: 1: There is grade 1 anterolisthesis of C7 on T1. There is associated diffuse disc bulge with superimposed central posterior disc extrusion/herniation with cephalad disc migration. There is moderate central canal stenosis and severe left neural foramen narrowing. 2: There is grade 1 anterolisthesis of C4 on C5. There is cwux-sl-vyxvhpkt left neural foramen narrowing. 3: There is qebv-ye-zvzxjksr right C6-C7 neural foramen narrowing from facet arthropathy and disc bulge. 4: There is a 1.4 cm and the left thyroid lobe nodule. Nonemergent thyroid ultrasound would better evaluate. Dictated by: Dictated on workstation # [id number]
== END ==
LOC: RAD 14:31
DX: M47.812 Spondylosis without myelopathy or radiculopathy, cervical region (principal); M50.23 Other cervical disc displacement, cervicothoracic region; M50.223 Other cervical disc displacement at C6-C7 level; M48.02 Spinal stenosis, cervical region; M43.12 Spondylolisthesis, cervical region; M43.13 Spondylolisthesis, cervicothoracic region
CPT/HCPCS: 72141

== ENCOUNTER 2020-10-02 05:43 | Outpatient (RCR) | payer BC ==
[~2020-10-02] VITALS: Ht 172.7 cm; Wt 99.3 kg
[~2020-10-02 05:43] MED LIST changes: +DAPA5TAB PO; +GLIP5TAB13 PO; +PANT20TA18 PO; +PIOG30TA71 PO
== END 2020-10-02 08:25 | disposition home or self-care (01) ==
LOC: PREOP 05:43
PROVIDERS: ATTEND Surgery
DX: Z01.812 Encounter for preprocedural laboratory examination (principal); R13.10 Dysphagia, unspecified; Z20.822 Contact with and (suspected) exposure to COVID-19
CPT/HCPCS: 87635

== ENCOUNTER 2020-10-03 09:56 | Day surgery (SDC) | payer BC ==
[2020-10-03] VITALS (11 sets, daily range): BP systolic 116–172; BP diastolic 72–88
[~2020-10-03] VITALS: Ht 172.7 cm; Wt 99.3 kg
[2020-10-03] MEDS ORDERED: fentaNYL INJ 100 MCG/2 ML AMP IVP ONE (10:00)
[2020-10-03] MEDS ORDERED: HURRICAINE EXT TUBE (BENZOCAINE) XX PRN (10:00)
[2020-10-03] MEDS ORDERED: NS IV 500 ML 500 ML IV PRN (10:00)
[2020-10-03] MEDS ORDERED: LIDOCAINE JELLY 2% 6 ML SYRINGE MM PRN (10:00)
[2020-10-03] MEDS ORDERED: MIDAZOLAM 5 MG/5 ML (VERSED) VIAL IV ONE (10:00)
[2020-10-03] MEDS ORDERED: NS IV 500 ML 500 ML ONE (10:03)
--- NOTE | 2020-10-03 11:22 | Progress Note-Pre Operative ---
Pre-Operative Progress Note H&P Reviewed The H&P was reviewed, patient examined and no changes noted. Date Seen by Provider: Oct 03, 2020 Time Seen by Provider: 11:00 Date H&P Reviewed: Oct 03, 2020 Time H&P Reviewed: 11:00 Pre-Operative Diagnosis: GERD, dysphagia MANNIE MAURO MD Oct 03, 2020 11:22
--- NOTE | 2020-10-03 11:22 | Conscious Sedation/ASA ---
Conscious Sedation Pre-Proced Time 11:00 ASA Score 2 For ASA 3 and 4: Consider anesthesia and medical clearance. Also, for patients with a history of failed moderate sedation consider anesthesia. Airway Lungs Heart ASA score ASA 1: a normal healthy patient ASA 2: a patient with a mild systemic disease (mid diabetes, controlled hypertension, obesity ASA 3: a patient with a severe systemic disease that limits activity (angina, COPD, prior Myocardial infarction) ASA 4: a patient with an incapacitating disease that is a constant threat to life (CHF, renal failure) ASA 5: a moribund patient not expected to survive 24 hrs. (ruptured aneurysm) ASA 6: a declared brain- patient whose organs are being harvested. For emergent operations, add the letter E after the classification Mallampati Classification Grade 2 Sedation Plan Analgesia, Amnesia, Plan communicated to team members, Discussed options with patient/fam, Discussed risks with patient/fam The patient is an appropriate candidate to undergo the planned procedure, sedation, and anesthesia. The patient immediately re-assessed prior to indication. MANNIE MAURO MD Oct 03, 2020 11:22
--- NOTE | 2020-10-03 11:23 | Discharge Inst-Surgical ---
D/C Lap Instructions-ZUNILDA Follow Up Activity as tolerated High Fiber Diet 25g or more per day Avoid Alcohol, Caffeine, Spicy [place] and Acid foods. Drink 64 fluid oz or more of fluids per day. Symptoms to Report: Fever over 101 degree F, Nausea/Vomiting If any problems/questions: Contact your physician or go to Emergency Room MANNIE MAURO MD Oct 03, 2020 11:23
[2020-10-03] MEDS ORDERED: ONDANSETRON 4 MG/2 ML (SDV) Z0FRAN IVP PRN (11:30)
[2020-10-03] MEDS ORDERED: ACETAMINOPHEN 325 MG TABLET PO PRN (11:30)
[2020-10-03] MEDS ORDERED: HYDROcodone/APAP 5 MG/325 MG (LORTAB) TAB PO PRN (11:30)
[2020-10-03] MEDS ORDERED: morphine INJ 10 MG/ML 1ML (SYR OR VIAL) IVP PRN ×2 (11:30)
--- NOTE | 2020-10-03 11:56 | Progress Note-Post Operative ---
Post-Operative Progess Note Surgeon (s)/Civil Engineer Helper (s) Surgeon MANNIE MAURO MD Civil Engineer Helper: none Pre-Operative Diagnosis GERD, dysphagia Post-Operative Diagnosis reflux esophagitis(stage 2-3), possible mild distal esophageal stricture, small HH(2cm), mild-mod gastritis. Procedure & Operative Findings Date of Procedure 10/03/20 Procedure Performed/Findings EGD with bx and balloon dilatation Anesthesia Type cs Estimated Blood Loss Estimated blood loss (mL): minimal Specimens/Packing Specimens Removed ge jxn, antrum MANNIE MAURO MD Oct 03, 2020 11:56
--- NOTE | 2020-10-03 15:28 | OPERATIVE REPORT ---
DATE OF SERVICE: 10/03/2020 ATTENDING PRIMARY CARE PHYSICIAN: Dr. Yovani Echeverria. PREOPERATIVE DIAGNOSES: Reflux esophagitis stage II, possible mild distal esophageal stricture, small hiatal hernia 2 cm in size, mild to moderate gastritis. No distal obstructions. PROCEDURES PERFORMED: EGD with biopsy and balloon dilatation. SURGEON: Mannie Mauro MD. ANESTHESIA: Conscious sedation. ESTIMATED BLOOD LOSS: Minimal. FINDINGS: Same as postop dx. INDICATIONS FOR PROCEDURE: The patient is a 60-year-old male, who has had issues with gastroesophageal reflux disease as well as dysphagia. He states that due to the difficulty in swallowing, he has lost approximately 8 pounds and unable to complete his meal. He was recently started on Protonix. He does again state that he has had a history of gastroesophageal reflux disease, which is exacerbated by spicy and greasy foods. DESCRIPTION OF PROCEDURE: The patient was brought to the endoscopy suite and laid in the left lateral decubitus position with head elevated. After adequate IV pain and sedative medications and conscious sedation anesthesia, the mouthpiece was applied. The endoscope was then placed in the mouth, visualizing the pharynx and hypopharyngeal region. Vocal cords, epiglottis and vallecula identified and appeared to be normal. The endoscope was then gently intubated, the esophageal opening and esophagus insufflated. The endoscope was then advanced through the first, second and third portion of the esophagus. At the level of the GE junction, reflux esophagitis between stage II and III identified. There was possibly a stricture as well. A biopsy was taken of the GE junction with forceps with visualization of good hemostasis. The endoscope was then advanced in the stomach and endoscope retroflexed, visualizing a small hiatal hernia approximately 2 cm in size. There was a mild to moderate gastritis noted. No formal ulcerations, polyps or any neoplasms. A biopsy was taken of the stomach antrum to rule out H. pylori with visualization of good hemostasis. The endoscope was then advanced to the pylorus and first and second portion of the duodenum, which appeared normal with no distal obstructions. The balloon was then placed into the stomach and pulled back to the area of stricture and then the balloon was insufflated in a gradual stepwise fashion from 2 to 4 and 6 atmospheres of pressure 20 mm in luminal diameter with only mild resistance. This was left in place for approximately 60 seconds and the balloon was desufflated and removed with visualization of good hemostasis as well as no mucosal tears. The endoscope was then slowly withdrawn while taking a second look of suction of residual air with no additional findings. The patient tolerated the procedure well. It does not appear that he has a significant stricture; however, we will recommend the necessary lifestyle and diet accommodation including small and more frequent meals, avoidance of eating at night as well as head elevation while lying supine. He was also recently started on Protonix and we want him to continue that medication. There is also the possibility of a gallbladder issue in the differential diagnosis and we will also get an ultrasound as well as a possible HIDA scan as an outpatient. Job ID: [id number] DocumentID: [id number] Dictated Date: 10/03/2020 11:49:38 Biopharmaceutical Rep Date: 10/03/2020 15:28:08 Dictated By: MANNIE MAURO MD MTDD
== END 2020-10-03 12:30 | disposition home or self-care (01) ==
LOC: ENDO 09:56
PROVIDERS: ATTEND Surgery
DX: K21.00 Gastro-esophageal reflux disease with esophagitis, without bleeding (principal); K44.9 Diaphragmatic hernia without obstruction or gangrene; K29.70 Gastritis, unspecified, without bleeding; E11.9 Type 2 diabetes mellitus without complications; I10 Essential (primary) hypertension; Z79.899 Other long term (current) drug therapy; Z79.82 Long term (current) use of aspirin; Z79.84 Long term (current) use of oral hypoglycemic drugs

== ENCOUNTER → 2020-10-09 | Outpatient (CLI) | payer BC ==
--- NOTE | 2020-10-09 09:15 | Diagnostic Imaging Report ---
PROCEDURE: US Gallbladder. TECHNIQUE: Multiple real-time grayscale images were obtained over the right upper quadrant in various projections. INDICATION: Right upper quadrant pain with nausea and vomiting. FINDINGS: The liver is normal in size without focal lesions. There is hepatopedal flow in the main portal vein. There is no biliary duct dilatation. Common bile duct measures 5 mm. There is a questionable small gallbladder polyp. There is no cholelithiasis, gallbladder wall thickening or pericholecystic fluid. Visualized portions of the pancreas are unremarkable. Aorta is nonaneurysmal. The IVC is patent. Right kidney is normal. No ascites. IMPRESSION: Questionable small gallbladder polyp, otherwise unremarkable right upper quadrant ultrasound. Dictated by: Dictated on workstation # [id number]
== END ==
LOC: RAD 08:00
PROVIDERS: ATTEND Surgery
DX: R10.11 Right upper quadrant pain (principal); R11.2 Nausea with vomiting, unspecified
CPT/HCPCS: 76705

== ENCOUNTER → 2020-10-24 | Outpatient (CLI) | payer BC ==
[~2020-10-24] MED LIST changes: +CATHETER FLUSH 10 ML SYR IV PRN
--- NOTE | 2020-10-24 15:41 | Diagnostic Imaging Report ---
INDICATION: Right upper quadrant pain COMPARISON: Right upper quadrant ultrasound from 10/09/2020 TECHNIQUE: Anterior scintigraphic imaging of the abdomen was performed after the intravenous administration of 5.5 mCi Tc-99m Choletec. FINDINGS: The upper abdomen was imaged for 60 minutes with the gamma camera. There is prompt homogeneous uptake of radiopharmaceutical by the liver. There is activity in the common duct and gallbladder by 30 minutes. Small bowel activity is seen by 70 minutes. After 60 minutes, the patient received 8 oz of ensure by mouth. After 60 minutes, the gallbladder ejection fraction was calculated to be 85% which is normal. IMPRESSION: 1. Patent common and cystic bile ducts. 2. No gallbladder dysfunction. Dictated by: Dictated on workstation # [id number]
== END ==
LOC: CARD 10:00
PROVIDERS: ATTEND Surgery
DX: R10.11 Right upper quadrant pain (principal); R11.2 Nausea with vomiting, unspecified
CPT/HCPCS: 78227; A9537

== ENCOUNTER → 2021-10-28 | Outpatient (CLI) | payer OTHER ==
[~2021-10-28] MED LIST changes: -CATHETER FLUSH 10 ML SYR IV PRN
== END ==
LOC: CARD 14:02
PROVIDERS: ATTEND Pediatrics
DX: I25.10 Atherosclerotic heart disease of native coronary artery without angina pectoris (principal)
CPT/HCPCS: 93306

== ENCOUNTER → 2021-10-29 | Outpatient (CLI) | payer OTHER ==
[~2021-10-29] MED LIST changes: +CATHETER FLUSH 10 ML SYR IVP PRN
[2021-10-29 10:00] VITALS: BP 141/88
== END ==
LOC: CARD 08:15
PROVIDERS: ATTEND Internal Medicine Cardiovascular Disease
DX: I25.10 Atherosclerotic heart disease of native coronary artery without angina pectoris (principal)
CPT/HCPCS: 78452; 93017